=== PATIENT | female | born 1985 | race Caucasian/White ===

== ENCOUNTER 2019-08-06 11:43 | Emergency (ER) | payer OTHER ==
[~2019-08-06] VITALS: Ht 162.6 cm; Wt 64.4 kg
== END 2019-08-06 18:29 | disposition home or self-care (01) ==
LOC: ER 11:43
DX: J11.1 Influenza due to unidentified influenza virus with other respiratory manifestations (principal); B33.8 Other specified viral diseases

== ENCOUNTER 2020-08-03 09:55 | Outpatient (CLI) | payer OTHER | END 2020-08-03 10:07 | disposition home or self-care (01) | LOC: SONOGRAMA 09:55 → RX STUDY 11:45 | PROVIDERS: ATTEND Obstetrics & Gynecology | DX: N84.0 Polyp of corpus uteri (principal); N93.8 Other specified abnormal uterine and vaginal bleeding ==